=== PATIENT | male | born 1985 | race African-American/Black ===

== ENCOUNTER 2016-12-29 22:58 | Emergency (ER) | payer BC ==
[~2016-12-29] VITALS: Ht 172.7 cm; Wt 70.3 kg
[2016-12-29 23:55] VITALS: BP 125/73
--- NOTE | 2016-12-30 03:37 | Emergency Room Report ---
History of Present Illness General Chief Complaint: Laceration Source: Patient Present Illness HPI 31-year-old male presents ED with laceration to scalp. States that he was looking in his car trunk when the trunk lid came down and hit his head. Denies LOC. Presents with laceration. Denies any other injuries. Denies LOC. Denies any pain. Tetanus is up-to-date. No other aggravating relieving factors. Denies any other associated symptoms Allergies: Coded Allergies: No Known Allergies (Unverified , 12/29/16) Patient History Past Medical History: none Past Surgical History: none Pertinent Family History: none Social History: Denies: smoking, alcohol use, drug use Immunizations: UTD Reviewed Nursing Documentation: PMH: Agreed, PSxH: Agreed Nursing Documentation-PMH Past Medical History: No Stated History Review of Systems All Other Systems: negative except mentioned in HPI Physical Exam Vital Signs Date Time Temp Pulse Resp B/P (MAP) Pulse Ox O2 Delivery O2 Flow Rate FiO2 12/29/16 23:03 97.9 82 16 125/73 97 Room Air Sp02 EP Interpretation: reviewed, normal General Appearance: no apparent distress, alert, GCS 15, non-toxic Head: normocephalic - 3cm scalp laceration, other Eyes: bilateral eye normal inspection, bilateral eye PERRL ENT: hearing grossly normal, normal pharynx, no angioedema, normal voice Neck: full range of motion, supple/symm/no masses Respiratory: normal inspection Cardiovascular #1: normal inspection Gastrointestinal: normal inspection Rectal: deferred Genitourinary: no CVA tenderness Musculoskeletal: normal inspection Neurologic: alert, oriented x3, responsive, motor strength/tone normal, sensory intact, speech normal Psychiatric: normal inspection Skin: laceration - 3cm scalp laceration Lymphatic: normal inspection Procedures Laceration/Wound Repair Laceration/Wound Repair : Consent: Verbal Wound Location: head - scalp Wound's Depth, Shape: superficial Wound Explored: clean Betadine Prep?: Yes Anesthesia: 1% Lidocaine Wound Debrided: minimal Wound Repaired With: chen Layer Closure?: No Sterile Dressing Applied?: No Splint Applied?: No Sling Applied?: No Patient Tolerated: Well Complications: None Medical Decision Making Diagnostic Impression: Primary Impression: Scalp laceration Qualified Codes: S01.01XA - Laceration without foreign body of scalp, initial encounter ER Course Hospital Course 31-year-old M presents to ED s/p scalp laceration Clinical course Patient placed on stretcher. After initial history and physical, wound is irrigated. Anesthesia provided with lidocaine. Laceration repaired with chen w/o complication Diagnosis - scalp laceration Stable and discharged to home. wound Care instructions given. Followup with PMD in 10 days for staple removal. Return to ED if any signs of infection develop Last Vital Signs Date Time Temp Pulse Resp B/P (MAP) Pulse Ox O2 Delivery O2 Flow Rate FiO2 12/29/16 23:55 82 16 125/73 97 12/29/16 23:55 97.9 Room Air Status: improved Disposition: HOME, SELF-CARE Condition: Stable Scripts No Active Prescriptions or Reported Meds Referrals: [facility] SUZIE WNYNE,REFERRING (PCP) Patient Instructions: Laceration Care, Adult Additional Instructions: return to ED in 10 days for staple removal. return to ED [facility] if any signs of infection develop ROSETTE TIM M.D. Dec 30, 2016 03:36
== END 2016-12-29 23:58 | disposition home or self-care (01) ==
LOC: EMR 23:30
DX: S01.01XA Laceration without foreign body of scalp, initial encounter (principal); W22.8XXA Striking against or struck by other objects, initial encounter; Y92.810 Car as the place of occurrence of the external cause
CPT/HCPCS: 99284

== ENCOUNTER 2017-03-03 13:45 | Emergency (ER) | payer BC ==
[~2017-03-03] VITALS: Ht 172.7 cm; Wt 74.8 kg
[2017-03-03] MEDS ORDERED: AMOXICILLIN500 MG ORAL (14:18)
[2017-03-03] MEDS ORDERED: Ketorolac 30mg Inj IM ONE (14:30)
[2017-03-03] MEDS ORDERED: Acetaminophen 500mg (ES) tab ORAL ONE (14:45)
--- NOTE | 2017-03-03 17:21 | Emergency Room Report ---
History of Present Illness General Chief Complaint: Sore Throat Source: Patient Present Illness HPI The patient is a 31-year-old male presenting for sore throat, cough, and fever for the past 7 days. He states that he went to urgent care 3 days prior with the same complaints and was told rapid strep test was negative. He has been gargling and has been using Motrin and Tylenol at symptoms have continued. Pain is a 9/10 dull ache and does not radiate from the back of the throat. He denies any other symptoms Allergies: Coded Allergies: No Known Allergies (Unverified , 12/29/16) Patient History Past Medical History: see triage record Pertinent Family History: none Reviewed Nursing Documentation: PMH: Agreed, PSxH: Agreed Nursing Documentation-PMH Past Medical History: No Stated History Review of Systems All Other Systems: negative except mentioned in HPI Physical Exam Vital Signs Date Time Temp Pulse Resp B/P (MAP) Pulse Ox O2 Delivery O2 Flow Rate FiO2 03/03/17 14:03 103.1 127 20 114/71 96 Room Air Sp02 EP Interpretation: reviewed, normal General Appearance: no apparent distress, alert, GCS 15, non-toxic Head: normocephalic, atraumatic Eyes: bilateral eye normal inspection, bilateral eye PERRL ENT: uvula midline, nasal congestion, tonsillar swelling, pharyngeal erythema, tonsillar exudate Neck: full range of motion, supple/symm/no masses Respiratory: chest non-tender, lungs clear, normal breath sounds, speaking full sentences Cardiovascular #1: regular rate, rhythm, no edema Musculoskeletal: back normal, gait/station normal, normal range of motion, non- tender Neurologic: alert, oriented x3, responsive, motor strength/tone normal, sensory intact, speech normal Psychiatric: judgement/insight normal, memory normal, mood/affect normal, no suicidal/homicidal ideation Skin: normal color, no rash, warm/dry, well hydrated Medical Decision Making PA Attestation Dr. Vasquez is my supervising physician. Patient management was discussed with my supervising physician Diagnostic Impression: Primary Impression: Pharyngitis, acute Qualified Codes: J02.9 - Acute pharyngitis, unspecified ER Course The patient is a 31-year-old male presenting for sore throat, cough, and fever for the past 7 days. Differential diagnosis include but not limited to pharyngitis, sinusitis, AOM, bronchitis, PNA Physical exam: Febrile. No apparent distress HEENT exam: There is bilateral tonsillar edema, erythema, and exudate. Uvula midline. Moist mucous membranes. There is bilateral cervical lymphadenopathy. Lungs are clear to auscultation bilaterally Skin is warm and dry. No rash Given toradol and tylenol for fever and pain The patient will be discharged home with a prescription for amoxicillin and is given ER precautions. Patient will followup with primary care Last Vital Signs Date Time Temp Pulse Resp B/P (MAP) Pulse Ox O2 Delivery O2 Flow Rate FiO2 03/03/17 14:03 103.1 127 20 114/71 96 Room Air Status: improved Disposition: HOME, SELF-CARE Condition: Improved Scripts Amoxicillin* (AMOXIL*) 500 Mg Capsule 500 MG ORAL Q12HR, #20 CAP Prov: AMY WALKER 03/03/17 Referrals: [facility],REFERRING (PCP) Patient Instructions: Pharyngitis Additional Instructions: I discussed my findings with the patient. All questions and concerns have been answered. Treatment and medication compliance have been addressed. I advised the patient that they need to follow up with PMD in 3-5 days. Return to ED if pain remains or worsens, cough worsens or remains, you notice blood in your sputum, you notice wheezing, you experience a fever, or if needed for any reason. Patient verbalized understanding of discharge instructions. AMY WALKER Mar 03, 2017 17:21
[2017-03-03 19:19] VITALS: BP 127/78
== END 2017-03-03 15:45 | disposition home or self-care (01) ==
LOC: EMR 14:20
DX: J02.9 Acute pharyngitis, unspecified (principal)
CPT/HCPCS: 96372; 99283; J1885